=== PATIENT | male | born 1985 | race Hispanic/Latino ===

== ENCOUNTER 2021-04-24 10:03 | Emergency (ER) | payer SELFPAY ==
[~2021-04-24] VITALS: Ht 170.2 cm; Wt 90.7 kg
[2021-04-24] MEDS ORDERED: LIDOCAINE HCL 2% LOCAL 20 ML VIAL INJ ONE (10:45)
[2021-04-24] MEDS ORDERED: HYDROCODONE/APAP 5MG-325MG TAB PO ONE (10:45)
[2021-04-24] MEDS ORDERED: TETANUS/DIPHTHERIA TOX ADULT 0.5 ML SYR IM ONE (10:45)
[2021-04-24 12:05] VITALS: BP 117/88
== END 2021-04-24 12:08 | disposition home or self-care (01) ==
LOC: ER 10:52
DX: S61.411A Laceration without foreign body of right hand, initial encounter (principal); W45.8XXA Other foreign body or object entering through skin, initial encounter; Y99.0 Civilian activity done for income or pay
CPT/HCPCS: 12002; 73130; 90471; 90714; 99283; J2001

== ENCOUNTER 2021-05-01 16:29 | Emergency (ER) | payer SELFPAY ==
[~2021-05-01] VITALS: Ht 170.2 cm; Wt 90.7 kg
== END 2021-05-01 17:10 | disposition home or self-care (01) ==
LOC: ER 16:49
DX: Z48.02 Encounter for removal of sutures (principal)
CPT/HCPCS: 99282; S0630